=== PATIENT | female | born 1970 | race Caucasian/White ===

== ENCOUNTER → 2016-07-22 | Outpatient (CLI) | payer BC ==
[~2016-07-22] MED LIST: FERR-31 PO; HYDR200T5 PO
--- NOTE | 2016-07-22 09:30 | RADRPT ---
PROCEDURE: XR right knee. CLINICAL INDICATION: Knee pain TECHNIQUE: AP weightbearing, PA weightbearing, lateral weightbearing and sunrise views are availab le for review. COMPARISON: 02/20/2015 FINDINGS: There is mild narrowing of the medial tibial femoral compartment. The osseous structures are otherwi se normal in mineralization, architecture and alignment. No fractures are identified. No osseous l esions are identified. The soft tissues are unremarkable. IMPRESSION: Mild narrowing of the medial tibial femoral compartment (query osteoarthrosis) RPTAT: [facility] .Paul Mitchell MD, MD Date Time Electronically viewed and signed by .Paul Mitchell MD, on 07/22/2016 09:29 .B/
--- NOTE | 2016-07-22 09:31 | RADRPT ---
PROCEDURE: XR left knee. CLINICAL INDICATION: Knee pain. TECHNIQUE: AP weightbearing, lateral weightbearing and sunrise views are available for review. COMPARISON: 05/16/2014 FINDINGS: There is a total knee replacement. There is no evidence of loosening of the prosthesis. The osseous structures are normal in mineralization, architecture and alignment No acute fracture or dislocation is seen.No osseous lesions are identified. The soft tissues are unremarkable . IMPRESSION: Unremarkable total knee replacement. RPTAT: [facility] .Paul Mitchell MD, Date Time Electronically viewed and signed by .Paul Mitchell MD, on 07/22/2016 09:31 .B/
== END | disposition home or self-care (01) ==
LOC: HKI 07:57
PROVIDERS: ATTEND Orthopaedic Surgery
DX: Z47.1 Aftercare following joint replacement surgery (principal); M25.562 Pain in left knee; M25.561 Pain in right knee; Z96.652 Presence of left artificial knee joint
CPT/HCPCS: 73562; 73564; G0463